=== PATIENT | female | born 1955 | race Caucasian/White ===

== ENCOUNTER 2017-09-12 08:07 | Emergency (ER) | payer BC, OTHER ==
[2017-09-12 08:31] VITALS: BP 126/78
--- NOTE | 2017-09-12 08:52 | UC ---
Respiratory Complaint HPI - HPI Summary HPI Summary: Cough, congestion, sore throat for about 4 days. Denies fever, chills, lung or heart disease. - History of Current Complaint Chief Complaint: UCRespiratory Stated Complaint: ST/COUGH Time Seen by Provider: 09/12/17 08:39 Hx Obtained From: Patient Hx Last Menstrual Period: n/a Onset/Duration: Gradual Onset, Lasting Days Severity Initially: Moderate Severity Currently: Moderate Pain Intensity: 8 Character: Cough: Nonproductive - Mainly dry. Aggravating Factors: Deep Breaths, Recumbent Position Alleviating Factors: Upright Position, Spontaneous Resolution Associated Signs And Symptoms: Positive: URI, Nasal Congestion. Negative: Dyspnea, Fever, Chills, Pleuritic Chest Pain, Calf Pain, Calf Swelling - Allergies/Home Medications Allergies/Adverse Reactions: Allergies Allergy/AdvReac Type Severity Reaction Status Date / Time No Known Allergies Allergy Verified 09/12/17 08:30 PMH/Surg Hx/FS Hx/Imm Hx Previously Healthy: Yes - Surgical History Surgical History: Yes Surgery Procedure, Year, and Place: Left meniscus REPAIR, LEFT EAR REPAIRED EAR DRUM(SYNTHETIC DRUM REPAIR, NO IMPLANT PER PATIENT), 05/2014-left knee replacement - Family History Known Family History: Positive: Other - no related family history. - Social History Occupation: Employed Full-time Alcohol Use: Occasionally Substance Use Type: None Smoking Status (MU): Never Smoked Tobacco Have You Smoked in the Last Year: No - Immunization History Most Recent Influenza Vaccination: 2013 Most Recent Tetanus Shot: WITHIN LAST TEN YEAR Most Recent Pneumonia Vaccination: NONE Review of Systems Constitutional: Negative Respiratory: Cough All Other Systems Reviewed And Are Negative: Yes Physical Exam Triage Information Reviewed: Yes Appearance: Well-Appearing, No Pain Distress, Well-Nourished Vital Signs: Initial Vital Signs Temp 97.9 F 09/12/17 08:25 Pulse 57 09/12/17 08:25 Resp 18 09/12/17 08:25 BP 126/78 09/12/17 08:25 Pulse Ox 98 09/12/17 08:25 Vital Signs Reviewed: Yes Eyes: Positive: Conjunctiva Clear ENT: Positive: Normal ENT inspection, Pharynx normal, TMs normal, Uvula midline. Negative: TM bulging, TM dull, TM red, Tonsillar swelling, Tonsillar exudate, Trismus, Muffled voice Neck: Positive: Supple, Nontender, No Lymphadenopathy Respiratory: Positive: Normal breath sounds, No respiratory distress, No accessory muscle use. Negative: Respiratory distress, Decreased breath sounds, Accessory muscle use, Crackles, Rhonchi, Stridor, Wheezing Cardiovascular: Positive: No Murmur, Pulses Normal Abdomen Description: Positive: No Organomegaly. Negative: Distended, Guarding Musculoskeletal: Positive: Strength Intact, ROM Intact, No Edema Psychological: Positive: Age Appropriate Behavior Skin: Negative: rashes UC Diagnostic Evaluation - Laboratory O2 Sat by Pulse Oximetry: 98 Respiratory Course/Dx - Differential Dx/Diagnosis Provider Diagnoses: uri. viral chest cold. Discharge - Sign-Out/Discharge Documenting (check all that apply): Discharge/Admit/Transfer - Discharge Plan Condition: Good Disposition: HOME Prescriptions: Ciproflox/Dexameth OTIC.SUSP* [Ciprodex Otic*] 2 drop .SEE ORDER TID #1 drop Patient Education Materials: Upper Respiratory Infection (ED) Referrals: Nahum Cramer MD [Primary Care Provider] - Additional Instructions: Try mucinex d and fco townsend. - Billing Disposition and Condition Condition: GOOD Disposition: HOME
== END 2017-09-12 08:50 | disposition home or self-care (01) ==
LOC: UCCORT 08:07
DX: J06.9 Acute upper respiratory infection, unspecified (principal); J00 Acute nasopharyngitis [common cold]
CPT/HCPCS: 99211; G0463

== ENCOUNTER 2017-12-15 10:20 | Emergency (ER) | payer BC ==
[2017-12-15 10:37] VITALS: BP 128/71
--- NOTE | 2017-12-15 11:07 | UC ---
Lower Extremity/Ankle HPI - HPI Summary HPI Summary: Per mechanical maintenance engineer "Right hip and lower back pain that started to worsen since Sunday. Does have chronic pain in that area. Has shooting pain down right leg. Can't stand for more than 5 minutes. Had steroid injection on 11/16 at pain clinic at [facility] [place]. " -Pain starts at the right low back and radiates down the side of her right thigh. There is no radiation into her buttocks into her groin or anterior thigh. It is tender to touch. There is no loss of bowel or bladder function. She is unable to sleep in her bed to chronic back pain and sleeps in a recliner instead. She's not had any relief with short course of NSAIDs. She has been icing it. She does do physical therapy home exercise program. She has followed with physical therapy for her back. -Denies loss of bowel or bladder function. No saddle anesthesia. -Denies falls and trauma. - History of Current Complaint Chief Complaint: UCBackPain Stated Complaint: RIGHT HIP PAIN Time Seen by Provider: 12/15/17 11:02 Hx Last Menstrual Period: n/a Pain Intensity: 10 - Allergies/Home Medications Allergies/Adverse Reactions: Allergies Allergy/AdvReac Type Severity Reaction Status Date / Time No Known Allergies Allergy Verified 12/15/17 10:36 PMH/Surg Hx/FS Hx/Imm Hx Previously Healthy: Yes - Surgical History Surgical History: Yes Surgery Procedure, Year, and Place: Left meniscus REPAIR, LEFT EAR REPAIRED EAR DRUM(SYNTHETIC DRUM REPAIR, NO IMPLANT PER PATIENT), 05/2014-left knee replacement - Family History Known Family History: Positive: Other - no related family history. - Social History Alcohol Use: Weekly Alcohol Amount: 3-4 DRINKS Substance Use Type: None Smoking Status (MU): Never Smoked Tobacco Have You Smoked in the Last Year: No - Immunization History Most Recent Influenza Vaccination: 2013 Most Recent Tetanus Shot: WITHIN LAST TEN YEAR Most Recent Pneumonia Vaccination: NONE Review of Systems Constitutional: Negative Skin: Negative Eyes: Negative ENT: Negative Respiratory: Negative Cardiovascular: Negative Gastrointestinal: Negative Genitourinary: Negative Motor: Negative Neurovascular: Negative Musculoskeletal: Other: - See above Neurological: Negative Psychological: Negative Is Patient Immunocompromised?: No All Other Systems Reviewed And Are Negative: Yes Physical Exam Triage Information Reviewed: Yes Appearance: Well-Appearing, No Pain Distress, Well-Nourished Vital Signs: Initial Vital Signs Temp 98.4 F 12/15/17 10:31 Pulse 56 12/15/17 10:31 Resp 18 12/15/17 10:31 BP 128/71 12/15/17 10:31 Pulse Ox 100 12/15/17 10:31 Vital Signs Reviewed: Yes ENT Exam: Normal Respiratory: Positive: Lungs clear Cardiovascular: Positive: RRR Musculoskeletal: Positive: Strength Intact, ROM Intact - Limitation in flexion at hip and adduction. Strength intact. Tenderness over her right greater trochanteric bursitis and length of right iliotibial band on lateral right thigh. No bruising or swelling. Neurological Exam: Normal Psychological Exam: Normal Skin Exam: Normal Lower Extremity Course/Dx - Course Course Of Treatment: -X-rays not indicated as there is no trauma or suspicion of fracture. She is agreeable. - Differential Dx/Diagnosis Differential Diagnosis/HQI/PQRI: Arthritis, Bursitis, Sprain, Strain, Tendonitis Provider Diagnoses: Right iliotibial band syndrome Discharge - Sign-Out/Discharge Documenting (check all that apply): Patient Departure - Discharge Plan Condition: Stable Disposition: HOME Patient Education Materials: Iliotibial Band Syndrome (ED) Referrals: Nahum Cramer MD [Primary Care Provider] - 6 Days Additional Instructions: We discussed the nature of your pain coming from tendonitis. The treatment is specific stretching and strengthening along with anti-inflammatories. I have shown you some gentle exercises today but I think that you will benefit from PT. I have provided a prescription for you to take to your physical therapist. - Billing Disposition and Condition Condition: STABLE Disposition: Home
== END 2017-12-15 11:33 | disposition home or self-care (01) ==
LOC: UCCORT 10:20
DX: M76.31 Iliotibial band syndrome, right leg (principal)
CPT/HCPCS: 99211; G0463

== ENCOUNTER 2018-08-20 08:05 | Emergency (ER) | payer BC ==
[2018-08-20 08:39] VITALS: BP 138/78
--- NOTE | 2018-08-20 09:09 | UC ---
Throat Pain/Nasal Brian HPI - HPI Summary HPI Summary: Pt reports 1 month cough. PT states was feeling better until worked extra hours this weekend. Pt states developed sinus congestion, sore throa t and right ear pain. Pt has been using OTC mucinx and robitussin with persistent cough. + yellow sputum, fatigue. Pt with h/o allergiies no COPD medicaitons reviewed this visit - History of Current Complaint Chief Complaint: UCGeneralIllness Stated Complaint: SORE THROAT, COUGH Time Seen by Provider: 08/20/18 08:49 Hx Obtained From: Patient Hx Last Menstrual Period: n/a Onset/Duration: Gradual Onset Pain Intensity: 9 - Allergies/Home Medications Allergies/Adverse Reactions: Allergies Allergy/AdvReac Type Severity Reaction Status Date / Time No Known Allergies Allergy Verified 08/20/18 08:36 PMH/Surg Hx/FS Hx/Imm Hx Previously Healthy: Yes - Surgical History Surgical History: Yes Surgery Procedure, Year, and Place: Left meniscus REPAIR, LEFT EAR REPAIRED EAR DRUM(SYNTHETIC DRUM REPAIR, NO IMPLANT PER PATIENT), 05/2014-left knee replacement - Family History Known Family History: Positive: Other - no related family history. - Social History Occupation: Employed Full-time Lives: With Family Alcohol Use: Rare Alcohol Amount: socially Substance Use Type: None Smoking Status (MU): Never Smoked Tobacco Have You Smoked in the Last Year: No - Immunization History Most Recent Influenza Vaccination: 2013 Most Recent Tetanus Shot: WITHIN LAST TEN YEAR Most Recent Pneumonia Vaccination: NONE Review of Systems All Other Systems Reviewed And Are Negative: Yes Constitutional: Positive: Fatigue ENT: Positive: Ear Ache, Nasal Discharge, Sinus Congestion Respiratory: Positive: Cough Cardiovascular: Positive: Negative Physical Exam - Summary Physical Exam Summary: Vital Signs Reviewed: Yes A+Ox3, no distress Eyes: Conjunctiva Clear, NORI. EOM intact and full ENT: Hearing grossly normal Pt with surgical changes to left ear drum + fluid right TM ++ fluid, erythema. turbiantes inflalmmed. + PND, no exudate Neck: Positive: Supple Respiratory: Positive: No respiratory distress, No accessory muscle use + CTA throughout no w/r Cardiovascular: RRR nl s1, s2 no m/r CBT <2 sec abd soft + BS nt/nd no guarding, no distension Musculoskeletal Exam: ESCOBAR x 4 without difficulty Strength Intact, ROM Intact Neurological: Positive: Alert, + sensation throughout Psychological: Positive: Normal Response To Family Skin: Positive: no rash, no ecchymosis Triage Information Reviewed: Yes Vital Signs: Initial Vital Signs Temp 97.9 F 08/20/18 08:33 Pulse 67 08/20/18 08:33 Resp 18 08/20/18 08:33 BP 138/78 08/20/18 08:33 Pulse Ox 100 08/20/18 08:33 Throat Pain/Nasal Course/Dx - Course Course Of Treatment: Pt with 1 month cough. Pt with 4 days progressive ear pain, congestion, sore throat. no documented fever Exam with right OM, surgical changes to left TM turbinates inalmmed an boggy will Rx abx flonase contiue with decongestant stict return precautions pt comfortable and in agreement with plan - Differential Dx/Diagnosis Provider Diagnosis: Right otitis media, URI (upper respiratory infection) Discharge - Sign-Out/Discharge Documenting (check all that apply): Patient Departure All imaging exams completed and their final reports reviewed: No Studies - Discharge Plan Condition: Stable Disposition: HOME Prescriptions: Amoxicillin/Clavulanate TAB* [Augmentin TAB 875*] 875 mg PO BID #20 tab Fluticasone NASAL SPRAY 50MCG* [Flonase NASAL SPRAY 50MCG*] 2 spray BOTH NARES DAILY #1 btl Patient Education Materials: Rhinosinusitis (ED), Serous Otitis Media (ED) Forms: *Work Release Referrals: Nahum Cramer MD [Primary Care Provider] - Additional Instructions: - Stay well hydrated. Drink plenty of non-alcoholic, non-caffinated beverages. - Alternate ibuprofen (Advil, Motrin) 600mg and Tylenol 1000mg every 3 hours for pain or fever. Take with food. Do NOT take for more than 4-5 days. - These infections are spread by secretions - do NOT share eating or drinking utensils - clean items you share with other people such as cell phones, computer mouse, TV remote, computer tablets,etc. Once you have been on antibiotics for 2 days, change your toothbrush and your pillowcase. - get plenty of restful sleep - humidify the air in the room where you sleep - boil water, run a hot steam shower, vaporizer, cups of water by heat register - okay to take over the counter decongestant and cough medication (Mucinex, Robitussin) - use nasal spray as prescirbed - contact your doctor or return with questions or concerns - Billing Disposition and Condition Condition: STABLE Disposition: Home
== END 2018-08-20 09:24 | disposition home or self-care (01) ==
LOC: UCCORT 08:05
DX: H66.91 Otitis media, unspecified, right ear (principal); J06.9 Acute upper respiratory infection, unspecified
CPT/HCPCS: 99212; G0463

== ENCOUNTER 2019-06-18 07:31 | Emergency (ER) | payer SELFPAY ==
--- NOTE | 2019-06-18 07:42 | ED ---
Adult Trauma - HPI Summary HPI Summary: This patient is a 63 year old female presenting to [facility] with a chief complaint of injuries after a fall. The patient states she was vacuuming at work when she went down the stairs and missed a step and fell down the stairs. She states her main complaint is a head laceration to the back of the leg. She reports mild neck pain, refuses to wear a C-collar because she states she often has neck pain. She denies LOC and nausea. Medications reviewed, allergies noted. - History of Current Complaint Stated Complaint: FALL HEAD LAC Time Seen by Provider: 06/18/19 07:33 Hx Obtained From: Patient Hx Last Menstrual Period: n/a Mechanism of Injury: Fall Loss of Consciousness: no loss of consciousness Onset of Pain: Hours - Allergy/Home Medications Allergies/Adverse Reactions: Allergies Allergy/AdvReac Type Severity Reaction Status Date / Time No Known Allergies Allergy Verified 05/29/19 12:00 Home Medications: Home Medications Multivitamins/Minerals TAB* [Theragran/minerals TAB*] 1 tab PO DAILY 06/18/19 [ History Confirmed 06/18/19] Vitamin B Complex TAB* [B Complex-50*] 1 tab PO DAILY 06/18/19 [History Confirmed 06/18/19] PMH/Surg Hx/FS Hx/Imm Hx Endocrine/Hematology History: Denies: Hx Diabetes Cardiovascular History: Reports: Hx Hypertension - ON MEDS Denies: Hx Congestive Heart Failure, Hx Pacemaker/ICD, Other Cardiovascular Problems/Disorders History: Denies: Hx Renal Disease Musculoskeletal History: Reports: Hx Arthritis - OSTEOARTHRITIS, Hx Back Problems - Chronic back pain Sensory History: Reports: Hx Contacts or Glasses Denies: Hx Hearing Aid Opthamlomology History: Reports: Hx Contacts or Glasses Neurological History: Reports: Hx Migraine - ON MED, Other Neuro Impairments/ Disorders - PAIN CLINIC PATIENT Psychiatric History: Reports: Hx Anxiety, Hx Depression Denies: Hx Panic Disorder - Cancer History Hx Chemotherapy: No Hx Radiation Therapy: No - Surgical History Surgery Procedure, Year, and Place: Left meniscus REPAIR, LEFT EAR REPAIRED EAR DRUM(SYNTHETIC DRUM REPAIR, NO IMPLANT PER PATIENT), 05/2014-left knee replacement Hx Anesthesia Reactions: Yes - VOMITING - Family History Known Family History: Positive: Other - no related family history. - Social History Alcohol Use: Occasionally Alcohol Amount: socially Substance Use Type: Reports: None Smoking Status (MU): Never Smoked Tobacco Have You Smoked in the Last Year: No Review of Systems Negative: Nausea Positive: Other - Neck pain Positive: Other - Laceration Negative: Syncope All Other Systems Reviewed And Are Negative: Yes Physical Exam - Summary Physical Exam Summary: Constitutional: Well-developed, Well-nourished, Alert, Cooperative Skin: Warm, Dry HENT: Normocephalic; No Racoons eyes; No foreman's sign; No abrasion; No contusion; No hemotympanum; No maxilla facial tenderness or instability; Dentition are smooth; No dental trauma; No trismus Eyes: EOM normal, PERRL Neck: Trachea is midline. No stridor; No JVD; No step off; No posterior cervical spine tenderness Cardio: Rhythm regular, rate normal Heart sounds normal; Intact distal pulses; The pedal pulses are 2+ and symmetric. Radial pulses are 2+ and symmetric. Pulmonary/Chest wall: Effort normal; Breath sounds normal; Equal chest rise; No flail segment; No rib tenderness; No sternal tenderness Abd: Soft, Appearance normal. No distension; No tenderness; No palpable pulsatile mass; No Cullens sign; No Davis-Turners sign Musculoskeletal: Full ROM and no tenderness at hips, ankles, shoulders, elbows and knees; No joint swelling; No vertebral body tenderness; No paraspinal tenderness; No step off or deformity of the spine; Pelvis is stable to lateral compression and rock Neuro: Alert, Oriented x3, Strength 5/5 all extremities. : No blood at urethral meatus Psych: Mood and affect Normal Triage Information Reviewed: Yes Vital Signs Reviewed: Yes Procedures - Sedation Patient Received Moderate/Deep Sedation with Procedure: No - Laceration/Wound Repair 1 Location: head Anesthesia: Lido - 5 CCs Closure: Ciales #__ - 4 atilio with copious irrigation Adult Trauma Course/Dx - Course Course Of Treatment: Patient is here after mechanical fall down one step and hitting her head. Patient had a laceration on the back of her scalp which was successfully repaired. Given patient's age and mechanism, a CT scan of her brain and cervical spine were performed which were negative for acute injury. - Diagnoses Provider Diagnoses: Laceration of head, Head injury Discharge ED - Sign-Out/Discharge Documenting (check all that apply): Patient Departure - Discharge - Discharge Plan Condition: Stable Disposition: HOME Patient Education Materials: Head Injury (ED) Forms: *Work Release Referrals: Nahum Cramer MD [Primary Care Provider] - Additional Instructions: Please return to the ED, urgent care, your primary care doctor in 10 days to have her atilio removed Please return to the ED if you have slurred speech, one-sided weakness, change in vision, one-sided numbness, redness at your wound, pus draining from your wound Please take Tylenol and Motrin for pain It is normal to feel more pain tomorrow Follow-up with your primary care doctor in 1-3 days - Billing Disposition and Condition Condition: STABLE Disposition: Home - Attestation Statements Document Initiated by Melisas: Yes Documenting Scribe: Ezequiel Dougherty Provider For Whom Melissa is Documenting (Include Credential): Alfred Arroyo MD Scribe Attestation: Ezequiel Kincaid, scribed for Alfred Arroyo MD on 06/18/19 at 1124. Scribe Documentation Reviewed: Yes Provider Attestation: The documentation as recorded by the Ezequiel rucker accurately reflects the service I personally performed and the decisions made by , Alfred Arroyo MD Status of Scribe Document: Viewed
[2019-06-18] MEDS ORDERED: Lidocaine 1% MPF ** 5 ML VIAL INJ ONE (07:43)
[2019-06-18 09:18] VITALS: BP 130/67
== END 2019-06-18 09:18 | disposition home or self-care (01) ==
LOC: ED 07:31
DX: S01.01XA Laceration without foreign body of scalp, initial encounter (principal); S09.90XA Unspecified injury of head, initial encounter; W10.9XXA Fall (on) (from) unspecified stairs and steps, initial encounter; Y93.E3 Activity, vacuuming; Y92.9 Unspecified place or not applicable; Y99.0 Civilian activity done for income or pay; M50.33 Other cervical disc degeneration, cervicothoracic region; I10 Essential (primary) hypertension; G43.909 Migraine, unspecified, not intractable, without status migrainosus; F32.9 Major depressive disorder, single episode, unspecified; Z96.652 Presence of left artificial knee joint; Z79.899 Other long term (current) drug therapy
CPT/HCPCS: 70450; 72125; 99283

== ENCOUNTER 2019-06-27 07:57 | Emergency (ER) | payer BC, OTHER ==
[2019-06-27 08:29] VITALS: BP 146/78
--- NOTE | 2019-06-27 09:06 | UC ---
HPI Wound/Suture Re-check - HPI Summary HPI Summary: 63 yo here for removal of atilio. WCB injury when she fell down stairs. She has no residual headaches or problems resulting from this injury. - History Of Current Complaint Chief Complaint: FABIOkin Stated Complaint: SUTURE REMOVAL PLACED HERE Time Seen by Provider: 06/27/19 08:58 Hx Obtained From: Patient Hx Last Menstrual Period: n/a Onset/Duration: Sudden Onset Severity: Mild Pain Intensity: 7 - Allergies/Home Medications Allergies/Adverse Reactions: Allergies Allergy/AdvReac Type Severity Reaction Status Date / Time No Known Allergies Allergy Verified 06/27/19 08:19 Home Medications: Home Medications Amlodipine Besylate 5 mg PO QAM 05/12/14 [History Confirmed 06/27/19] Triamterene/HCTZ 37.5-25 MG* [Dyazide CAP*] 1 cap PO QAM 05/12/14 [History Confirmed 06/27/19] Citalopram TAB* [Celexa TAB*] 10 mg PO DAILY 08/24/17 [History Confirmed ] Ibuprofen TAB* [Advil TAB*] 600 mg PO Q8H PRN 08/24/17 [History Confirmed ] Naproxen Sodium [Aleve] 440 mg PO BID PRN 01/29/18 [History Confirmed 06/27/19] Multivitamins/Minerals TAB* [Theragran/minerals TAB*] 1 tab PO DAILY 06/18/19 [ History Confirmed 06/27/19] Vitamin B Complex TAB* [B Complex-50*] 1 tab PO DAILY 06/18/19 [History Confirmed 06/27/19] Acetaminophen TAB* [Tylenol TAB*] 650 mg PO Q4H PRN 06/27/19 [History Confirmed 06/27/19] PMH/Surg Hx/FS Hx/Imm Hx Previously Healthy: Yes - Has MSK concerns, otherwise well - Surgical History Surgical History: Yes Surgery Procedure, Year, and Place: Left meniscus REPAIR, LEFT EAR REPAIRED EAR DRUM(SYNTHETIC DRUM REPAIR, NO IMPLANT PER PATIENT), 05/2014-left knee replacement - Family History Known Family History: Positive: Other - no related family history., Non- Contributory - Social History Occupation: Employed Full-time Alcohol Use: Occasionally Alcohol Amount: socially Substance Use Type: None Smoking Status (MU): Never Smoked Tobacco Have You Smoked in the Last Year: No - Immunization History Most Recent Influenza Vaccination: 2013 Most Recent Tetanus Shot: 04/24 Most Recent Pneumonia Vaccination: NONE Review of Systems All Other Systems Reviewed And Are Negative: Yes Constitutional: Positive: Negative Skin: Positive: Other - no problems with care of atilio. Motor: Positive: Negative Neurological/Mental Status: Negative: Headache, Weakness Psychological: Positive: Negative Is Patient Immunocompromised?: No Physical Exam Triage Information Reviewed: Yes Appearance: Well-Appearing, No Pain Distress Vital Signs: Initial Vital Signs Temp 97.8 F 06/27/19 08:21 Pulse 49 06/27/19 08:21 Resp 15 06/27/19 08:21 BP 146/78 06/27/19 08:21 Pulse Ox 99 06/27/19 08:21 ENT Exam: Normal ENT: Positive: Normal ENT inspection Respiratory Exam: Normal Cardiovascular Exam: Normal Skin Exam: Other - 4 atilio removed from occipital area. Wound well healed, mild crusting. Course/Dx - Course Course Of Treatment: sutures removed from scalp. - Differential Dx - Laceration/Wound Differential Diagnoses: Healing Wound, Suture Removal - Diagnosis Provider Diagnosis: Encounter for staple removal Discharge ED - Sign-Out/Discharge Documenting (check all that apply): Patient Departure All imaging exams completed and their final reports reviewed: No Studies - Discharge Plan Condition: Stable Disposition: HOME Patient Education Materials: Staple Care (ED) Referrals: Nahum Cramer MD [Primary Care Provider] - Additional Instructions: Your wound has healed well. You might see a little bit of blood as the crust comes away with hair washing. Follow up if you have any increasing headache or dizziness. - Billing Disposition and Condition Condition: STABLE Disposition: Home
== END 2019-06-27 09:18 | disposition home or self-care (01) ==
LOC: UCCORT 07:57
DX: T14.90XD Injury, unspecified, subsequent encounter (principal); W10.9XXD Fall (on) (from) unspecified stairs and steps, subsequent encounter
CPT/HCPCS: 99211; G0463

== ENCOUNTER 2019-10-31 12:08 | Observation (INO) ==
[~2019-10-31 12:08] MED LIST: Lactated Ringers 1000 ml BAG 1,000 ML IV SCH
[2019-10-31] MEDS ORDERED: ceFAZolin 2 GM PREMIX in ORs 2 GM/50 ML BAG ONE (12:40)
[2019-10-31 13:02] LABS: Activated Partial Thrombo Time 30.9 seconds (26.0-38.0); INR 1.04 (0.82-1.09)
[2019-10-31] MEDS ORDERED: Midazolam 2 mg/2 ml VIAL 1 mg/ml 2 ml VIAL (2 mg) ONE (13:09)
[2019-10-31] MEDS ORDERED: fentaNYL 100 mcg/2 ml 50 MCG/ML VIAL ONE ×2 (13:09→16:02)
[2019-10-31] MEDS ORDERED: Naloxone 0.4 mg VIAL 0.4 mg/ml 1 ml VIAL IV PRN (13:58)
[2019-10-31] MEDS ORDERED: Rocuronium 50 mg VIAL 10 mg/ml 5 ml VIAL (50 mg) ONE (14:11)
[2019-10-31] MEDS ORDERED: Dexamethasone IV 4 MG/ML VIAL 1 ml VIAL ONE (15:15)
[2019-10-31] MEDS ORDERED: Lidocaine 2% PF 5 ML VIAL ONE (15:15)
[2019-10-31] MEDS ORDERED: Propofol 10 MG/ML 20 ML BTL ONE (15:15)
[2019-10-31] MEDS ORDERED: Succinylcholine 200 mg VIAL 20 mg/ml 10 ml VIAL (200 mg) ONE (15:15)
[2019-10-31] MEDS ORDERED: ROPIVACAINE 5 MG/ML 30 ML BTL (0.5%) ONE (15:15)
[2019-10-31] MEDS ORDERED: Levalbuterol 1.25MG/0.5ML NEB.SOL INH ONE (16:44)
[2019-10-31] MEDS ORDERED: Levalbuterol 1.25MG/0.5ML NEB.SOL ONE (17:03)
[2019-10-31] MEDS ORDERED: Morphine 10 MG/ML VIAL (1 ml) IV PRN (18:49)
[2019-10-31] MEDS ORDERED: diPHENhydraMINE IV 50 MG/ML 1 ml VIAL (BENADRYL) IV PRN (18:49)
[2019-10-31] MEDS ORDERED: NS 0.9% 1000 ml BAG 1,000 ML IV SCH (19:00)
[2019-11-01] MEDS: oxyCODONE/Acetamin 5/325 mg TAB PO PRN ×2 (07:04→12:02)
[2019-11-01 11:28] VITALS: BP 119/67
== END 2019-11-01 13:50 | disposition home or self-care (01) ==
LOC: SSU 12:08 → OR 12:08
PROVIDERS: ADMIT Orthopaedic Surgery; ATTEND Orthopaedic Surgery